=== PATIENT | female | born 1950 | race Caucasian/White ===

== ENCOUNTER → 2020-09-07 07:50 | Outpatient (BNV) | payer MEDICARE, SELFPAY | PROVIDERS: PCP Family Medicine; Visit Provider Internal Medicine Medical Oncology | DX: Z85.038 Personal history of other malignant neoplasm of large intestine (principal) | CPT/HCPCS: 99213; 99214 ==

== ENCOUNTER 2021-09-28 05:40 | Outpatient (REF) | payer MEDICARE, SELFPAY ==
--- NOTE | ~2021-09-28 | CT_ITS ---
EXAMINATION: CT CHEST, ABDOMEN AND PELVIS WITH CONTRAST CLINICAL INFORMATION: History of colon cancer. COMPARISON: CT chest, abdomen, pelvis with contrast 09/09/2015. TECHNIQUE: 5 mm thin axial and reformatted 3 mm thin sagittal and coronal images of chest, abdomen and pelvis were obtained following IV 100 mL Omnipaque 350. DLP: 1017 mGy-cm FINDINGS: CHEST: Lungs: The lungs are well-expanded and clear of acute pneumonic process. Again visualized is a 4 mm subpleural nodule left lower lobe, axial image 324/9. No additional nodules seen. There is no consolidation or mass. Mediastinum: The thyroid lobes are symmetric and normal. The central trachea and bronchi are widely patent. Heart size and the great vessels are normal caliber. There is no pericardial effusion. No abnormal-size mediastinal or hilar lymph nodes seen. Pleura: There is no pleural thickening, calcification or effusion. Axilla: No abnormal axillary lymph nodes seen. The chest wall is unremarkable. ABDOMEN AND PELVIS: Liver, Ducts and Gallbladder: The liver is normal size, shape and position. There are multiple hypodense liver lesions similar to previous exam, the largest along the left hepatic dome measuring 4.5 cm on axial image 42/3. Previously the larger cyst was noted in the right hepatic lobe. No solid enhancing lesion seen. There is no intrahepatic ductal dilatation. The gallbladder is unremarkable. Spleen: Unremarkable. Pancreas: Unremarkable. Adrenal Glands: Unremarkable. Kidneys and Ureters: Both kidneys are normal size, shape and position. No radiopaque renal calculi or hydroureteronephrosis seen. There are bilateral extrarenal kidney pelvises. Lymphovascular Structures: The abdominal aorta is normal caliber. No abnormal-size retroperitoneal or mesenteric lymph nodes seen. GI Tract: There is a large amount of stool, gas and oral contrast in the colon without significant distention. Oral contrast opacified small-bowel loops are normal caliber. Appendix is normal caliber. No inflammatory process seen in the abdomen. There is no free fluid. Abdominal Wall: Unremarkable. Pelvis: The uterus is anteverted and appears unremarkable. There are multiple calcifications in the uterus likely calcified fibroid. There is no free fluid. Osseous Structures: There is no lytic or sclerotic process seen. There are degenerative vacuum disc phenomena L3-L4 disc level with superior endplate Schmorl's node L4 vertebra. There is moderate ventral spondylosis lower dorsal spine. CT/CT abdomen pelvis w con IMPRESSION: Stable left lower lobe subpleural 4 mm nodule. No new nodules or abnormal mediastinal or axillary lymphadenopathy. Moderate constipation. No acute process seen in the abdomen. No metastatic disease. Multiple hepatic renal cysts; previously a large right hepatic cyst was seen. At this time, there is a larger left hepatic cyst. Calcified uterine fibroid, unchanged.
[2021-09-28] MEDS: iohexoL 350 MG/ML 100 ML INFUS..BTL IV (09:32)
[2021-09-28] MEDS: Barium Sulfate Oral (Mocha) 450 ML ORAL.SUSP 900 ML PO (09:33)
== END 2021-09-28 05:41 | disposition home or self-care (01) ==
LOC: HO.CT 05:40
PROVIDERS: Visit Provider Internal Medicine Medical Oncology
DX: C18.9 Malignant neoplasm of colon, unspecified (principal)
CPT/HCPCS: 71260; 74177; Q9967

== ENCOUNTER → 2021-11-18 08:58 | Outpatient (BNVA) | payer MEDICARE, SELFPAY | PROVIDERS: PCP Family Medicine; Visit Provider Surgery | DX: Z85.038 Personal history of other malignant neoplasm of large intestine (principal) | CPT/HCPCS: 99202 ==

== ENCOUNTER 2021-12-24 07:21 | Day surgery (SDC) | payer MEDICARE, SELFPAY ==
[2021-12-20 15:01] VITALS: BMI 45.2
--- NOTE | 2021-12-23 09:33 | HO.ANESPROP2 ---
Documented by User: Lamar Turner NP 12/23/21 09:34 HPI - Anesthesia Eval Consult details Narrative: 71yo F for Colonoscopy PMFSH Active Problems Active Problems: All Active Problems (Updated 11/18/21 @ 09:23 by Waqar Tillman MD) Colon cancer (Acute) History of colon cancer (Acute) Past Medical History Medical History Bilateral tinnitus Colon cancer High cholesterol History of colon cancer Hypertension PONV (postoperative nausea and vomiting) Family History Family History Brother Deaf Paternal Grandmother Brain cancer Paternal Uncle Brain cancer Family/Other Brain cancer Other Parents Surgical History Surgical History History of colectomy History of colonoscopy (11/17/16) History of left cataract surgery (06/2012) History of right cataract surgery (05/2012) History of tonsillectomy and adenoidectomy Social History Social History Household Members: Spouse Housing: [facility] Are you a primary daytime caregiver to a significant other at home: No Do you presently have visiting nurse or other home services: No Alcohol intake: former Patient Tobacco Use Status: Former Tobacco user Quit Date: 1995 Tobacco use type: Cigarette Years Smoked: 10 Smoked in Last 30 Days: No Use of substances other than those prescribed or required for medical reasons: No Are you DNR?: No Advance Directives: No Advance Directives Information Provided: Yes service: No Current occupational status: retired Meds Allergies Allergy/AdvReac Type Severity Reaction Status Date / Time nickel [NICKEL] Allergy Intermediate RASH Verified 12/24/21 07:43 oxycodone [From Percocet] AdvReac Intermediate Dizziness Verified 12/24/21 07:43 SEASONAL ALLERGIES Allergy Mild stuffy Uncoded 11/18/21 09:14 nose Home Medications Medication Instructions Recorded Confirmed Last Taken Type atenolol 25 mg tablet 1 tab PO DAILY 09/07/20 12/24/21 12/24/21 05:00 History simvastatin 40 mg tablet 1 tab PO DAILY 09/07/20 12/24/21 Unknown History cholecalciferol (vitamin D3) 50 50 mcg PO DAILY 09/07/21 12/24/21 Unknown History mcg (2,000 unit) capsule (Vitamin D3) psyllium husk 0.52 gram capsule 0.52 g PO DAILY 09/07/21 12/24/21 Unknown History Exam Exam Date and Time: December 23, 2021932 Height,Weight and Vital Signs: Height 5 ft 2 in Weight 112.207 kg Pertinent Lab Results Pertinent Lab Results: Laboratory Tests 09/07/21 09/07/21 08:10 08:10 WBC 5.6 Hgb 13.4 Hct 41.4 Plt Count 204 Sodium 140 Potassium 4.2 Chloride 104 Carbon Dioxide 26 BUN 17 H Creatinine 0.81 Assessment and Plan Assessment Anesthesia Assessment: Chart Reviewed Documented by User: Trsiha Yap MD 12/24/21 08:16 PMFSH Active Problems Active Problems: All Active Problems (Updated 11/18/21 @ 09:23 by Waqar Tillman MD) Colon cancer (Acute) History of colon cancer (Acute) BETSY. On CPAP Remote h/o smoking Morbid Obesity. BMI 42.1 Past Medical History Medical History Bilateral tinnitus Colon cancer High cholesterol History of colon cancer Hypertension PONV (postoperative nausea and vomiting) Family History Family History Brother Deaf Paternal Grandmother Brain cancer Paternal Uncle Brain cancer Family/Other Brain cancer Other Parents Family history of problems with anesthesia: No Surgical History Surgical History History of colectomy History of colonoscopy (11/17/16) History of left cataract surgery (06/2012) History of right cataract surgery (05/2012) History of tonsillectomy and adenoidectomy History of Problems with Anesthesia: No Social History Social History Household Members: Spouse Housing: [facility] Are you a primary daytime caregiver to a significant other at home: No Do you presently have visiting nurse or other home services: No Alcohol intake: former Patient Tobacco Use Status: Former Tobacco user Quit Date: 1995 Tobacco use type: Cigarette Years Smoked: 10 Smoked in Last 30 Days: No Use of substances other than those prescribed or required for medical reasons: No Are you DNR?: No Advance Directives: No Advance Directives Information Provided: Yes service: No Current occupational status: retired Meds Allergies Allergy/AdvReac Type Severity Reaction Status Date / Time nickel [NICKEL] Allergy Intermediate RASH Verified 12/24/21 07:43 oxycodone [From Percocet] AdvReac Intermediate Dizziness Verified 12/24/21 07:43 SEASONAL ALLERGIES Allergy Mild stuffy Uncoded 11/18/21 09:14 nose Home Medications Medication Instructions Recorded Confirmed Last Taken Type atenolol 25 mg tablet 1 tab PO DAILY 09/07/20 12/24/21 12/24/21 05:00 History simvastatin 40 mg tablet 1 tab PO DAILY 09/07/20 12/24/21 Unknown History cholecalciferol (vitamin D3) 50 50 mcg PO DAILY 09/07/21 12/24/21 Unknown History mcg (2,000 unit) capsule (Vitamin D3) psyllium husk 0.52 gram capsule 0.52 g PO DAILY 09/07/21 12/24/21 Unknown History Exam Height,Weight and Vital Signs: Height 5 ft 2 in Weight 112.207 kg Vital Signs Temp Pulse Resp BP Pulse Ox O2 Del Method 12/24/21 07:54 97.2 F 56 16 169/64 H 95 Room Air Airway Mallampati Class: III (Small mouth) TM Dist: >3cm Neck ROM: Full Loose/Missing/Broken Teeth: No (Denies broken or loose teeth ) Heart: RRR Lungs: CTAB Assessment and Plan Assessment Anesthesia Assessment: Anesthesia Plan Discussed Final Anesthetic Review Family History of Problems with Anesthesia: No History of Problems with Anesthesia: No NPO: Yes ASA Class: III Final Preanesthetic Review: No Changes in Pt Med Stat, Meds/Allgs Chart Reviewed, Consent Obtained/Reviewed and Anes Risks/Benef Reviewed Patient Risk: Intermediate Procedure Risk: Low Assessment/Block/Sedation in SS: Assess/Block/Sedation-SS Anesthetic Plan Anesthetic Plan: MAC: Disposition: Standard PACU
[2021-12-24 07:49] VITALS: BMI 42.0
[2021-12-24 07:54] VITALS: BP 169/64; PULSE 56; RESP 16; TEMP 36.2; O2SAT 95
--- NOTE | 2021-12-24 07:59 | MHC.SHP ---
Pre-Procedural Eval Section A Date of Service: 12/24/21 The patient is an INPATIENT: No Changes since office visit: No Cold of Flu in the past 2 weeks, No New Medical Problems, No Changes in Medication and No Patient answered all questions The History & Physical has been completed within 30 days and I have reviewed it.: Yes Section B Chief Complaint: personal hx of malignant neoplasm of lg intestine Allergies: Allergies Allergy/AdvReac Type Severity Reaction Status Date / Time nickel [NICKEL] Allergy Intermediate RASH Verified 12/24/21 07:43 oxycodone [From Percocet] AdvReac Intermediate Dizziness Verified 12/24/21 07:43 SEASONAL ALLERGIES Allergy Mild stuffy Uncoded 11/18/21 09:14 nose Plan I have reviewed the history and physical and performed a pertinent physical examination on my patient. No changes have occurred unless specified.
[2021-12-24] MEDS: Lactated Ringers 1,000 ML 100 ML IVCONT (08:01)
--- NOTE | 2021-12-24 08:05 | MHC.SHP ---
Pre-Procedural Eval Section A Date of Service: 12/24/21 Section B Chief Complaint: personal hx of malignant neoplasm of lg intestine Details of Present Illness: has personal history of colon cancer, undergoes colonoscopy every 5 years Relevant Family History (Specify if Yes): No Relevant Social History: None Present Medications: see Short Stay Collaborative assessment Medical History: Significant History ( history of colon cancer, hypertension, hyperlipidemia, obesity) History of Previous Operations: Relevant previous surgery/procedure and date(s) ( history of colon resection for cancer, transverse colon) Allergies: Allergies Allergy/AdvReac Type Severity Reaction Status Date / Time nickel [NICKEL] Allergy Intermediate RASH Verified 12/24/21 07:43 oxycodone [From Percocet] AdvReac Intermediate Dizziness Verified 12/24/21 07:43 SEASONAL ALLERGIES Allergy Mild stuffy Uncoded 11/18/21 09:14 nose Review of Systems Sugical H&P ROS: Negative: Constitution, Cardiovascular, Respiratory, Neurological, Psychiatric, Hem-Onc, Allergic/Immunologic, Gastrointestinal, Genitourinary, Musculoskeletal, Integumentary, Endocrine and Eyes/Ears/Nose/Throat Exam Surgical H&P Exam: Normal: HEENT, Normal: Heart, Normal: Lungs, Normal: Extremities, Normal: Abdomen, Normal: Skin and Normal: Neurological Plan Diagnosis/Plan: Unchanged I have reviewed the history and physical and performed a pertinent physical examination on my patient. No changes have occurred unless specified.
--- NOTE | 2021-12-24 08:15 | PC.NURSE ---
Dr. Masterson made aware of cardiac rhythm, SB with HR from 45-58. No new orders.
--- NOTE | 2021-12-24 08:43 | P.OP_ITS ---
Operative Note Operative Note Date of Service: 12/24/21 Narrative: Preop diagnosis: History of colon cancer Postop diagnosis: 1. Diverticulosis of the sigmoid, mild 2. small flat polyp about 3 mm at level 65 cm, removed with multiple bites of the cold forceps 3. large external hemorrhoid Procedure: Colonoscopy, polypectomy with cold forceps surgeon: Waqar Tillman MD The patient is a 71-year-old female who had a history of colon cancer in 2008. She therefore undergoes a colonoscopy every 5 years. She understands the technique of the procedure is where the risks, benefits, and alternatives. The patient was brought to the operating room and placed in left lateral decubitus position under monitored anesthesia care. A surgical time-out was done. A full digital rectal exam was done and this did not reveal any s ignificant anal lesions except for large external hemorrhoids. The tip of the Olympus colonoscope was gently introduced through the anal orifice and advanced with insufflation all the way to the cecum. The cecum was intubated. The cecum was identified by visualization of the ileocecal valve as well as the appendiceal orifice. The cecal mucosa was unremarkable. The scope was gradually withdrawn with careful examination of the entire colonic mucosa being done with scope withdrawal. The patient had adequate bowel prep so it was unlikely that any lesion may have been missed. There was note of mild diverticulosis of the sigmoid. There was note of a small flat polyp, about 3 mm at level 65 cm. This was removed using multiple bites of the cold forceps. I was unable to be visualized the previous anastomosis.The rectum was reached and there were no lesions seen. The anal canal was unremarkable. The scope was then withdrawn completely with desufflation. The patient tolerated procedure well. There were no immediate complications. Her next colonoscopy may be in the next 5 years.
[2021-12-24 08:48] VITALS: BP 119/70; PULSE 54; RESP 16; TEMP 36.4; O2SAT 96
[2021-12-24 09:04] VITALS: BP 144/88; PULSE 55; RESP 18; TEMP 36.6; O2SAT 96
== END 2021-12-24 09:53 | disposition home or self-care (01) ==
PROVIDERS: Visit Provider Surgery
PROC: 0DJD8ZZ Inspection of Lower Intestinal Tract, Via Natural or Artificial Opening Endoscopic (ICD-10-PCS; CPT 45378; principal; 2021-12-24 08:30)
DX: Z12.11 Encounter for screening for malignant neoplasm of colon (principal); Z85.038 Personal history of other malignant neoplasm of large intestine; K63.5 Polyp of colon; K57.30 Diverticulosis of large intestine without perforation or abscess without bleeding; K64.8 Other hemorrhoids; K64.4 Residual hemorrhoidal skin tags; I10 Essential (primary) hypertension; E78.00 Pure hypercholesterolemia, unspecified; Z90.49 Acquired absence of other specified parts of digestive tract; Z98.0 Intestinal bypass and anastomosis status; Z79.899 Other long term (current) drug therapy; Z88.8 Allergy status to other drugs, medicaments and biological substances; Z87.891 Personal history of nicotine dependence
CPT/HCPCS: 45380; 88305

== ENCOUNTER 2023-11-10 09:00 | Outpatient (RCR) | payer MEDICARE, SELFPAY | END 2023-12-05 15:26 | disposition home or self-care (01) | LOC: HO.PT 09:00 | PROVIDERS: PCP Family Medicine; Visit Provider Obstetrics & Gynecology Female Pelvic Medicine and Reconstructive Surgery | DX: N39.3 Stress incontinence (female) (male) (principal) | CPT/HCPCS: 97112; 97140; 97162; 97535 ==